=== PATIENT | female | born 2000 | race Caucasian/White ===

== ENCOUNTER 2021-02-23 22:32 | Emergency (ER) | payer BC ==
[~2021-02-23] VITALS: Ht 167.6 cm; Wt 63.0 kg
--- NOTE | 2021-02-23 22:48 | PHYS DOC ---
General Adult EDM: Chief Complaint: SORE THROAT HPI: HPI: ".. I got a really sore throat... It hurts to swallow..." Patient is a 20 year old female who presents with hx of recurrent episodes of pharyngitis. Patient currently has complaints of pharyngitis. Patient was seen by today and given a reported steroid shot and started on clindamycin. Patient does have pending follow-up with ENT. No recent travel. No specific ill contacts. No history immunosuppression. Review of Systems: Review of Systems: Constitutional: Complains of fever Eyes: Denies change in visual acuity HENT: Denies nasal congestion. Complains of sore throat Respiratory: Denies cough or shortness of breath Cardiovascular: Denies chest pain or edema GI: Denies abdominal pain, nausea, vomiting, bloody stools or diarrhea : Denies dysuria Musculoskeletal: Denies back pain or joint pain Integument: Denies rash Neurologic: Denies headache, focal weakness or sensory changes Endocrine: Denies polyuria or polydipsia Lymphatic: Denies swollen glands Psychiatric: Denies depression or anxiety Family History: Family History: Noncontributory to presentation Current Medications: Current Meds: See nursing for home meds Allergies: Allergies: Allergic to penicillins Physical Exam: PE: Constitutional: Well developed, well nourished, moderate acute distress, non- toxic appearance. [] HENT: Normocephalic, atraumatic, bilateral external ears normal, oropharynx moist, no oral exudates, nose normal. Injected tonsillar pillars , some ulcers noted. Eyes: PERRLA, EOMI, conjunctiva normal, no discharge. [] Neck: Normal range of motion, no tenderness, supple, no stridor. Adenopathy anterior cervical chain. Trachea midline Cardiovascular: Tachycardia heart rate regular rhythm, no murmur [] Lungs & Thorax: Bilateral breath sounds equal at apex auscultation [] Abdomen: Bowel sounds normal, soft, no tenderness, no masses, no pulsatile masses. [] Skin: Warm, dry, no erythema, no rash. [] Back: No tenderness, no CVA tenderness. [] Extremities: No tenderness, no cyanosis, no clubbing, ROM intact, no edema. [] Neurologic: Alert and oriented X 3, normal motor function, normal sensory function, no focal deficits noted. [] Psychologic: Affect anxious, judgement normal, mood normal. [] EKG: EKG: [] Radiology/Procedures: Radiology/Procedures: [][address] [address] IMAGING REPORT Signed PATIENT: AVERY BELLA ACCOUNT: [id number] : 2000 LOCATION: ER AGE: 20 SEX: F EXAM STATUS: REG ER ORD. PHYSICIAN: LESLYE AGUDELO MD REASON: OMNI 300,75ML IV.Pain,difficulty swallowing,eval abscess.Hx strep PROCEDURE: CT SOFT TISSUE NECK W/CONTRAST INDICATION: Reason: OMNI 300,75ML IV.Pain,difficulty swallowing,eval abscess.Hx strep / Spl. Instructions: / History: . COMPARISON: None. TECHNIQUE: Axial CT images obtained through the neck with contrast. One or more of the following individualized dose reduction techniques were utilized for this examination: 1. Automated exposure control; 2. Adjustment of the mA and/or kV according to patient size; 3. Use of iterative reconstruction technique. FINDINGS: The epiglottis is not enlarged. No prevertebral soft tissue swelling. Airway appears patent. Nasal septal deviation to the right. Scattered prominent lymph nodes in the neck which could be reactive. For example conglomerate of lymph nodes on the right posterior to the internal jugular vein measuring up to 15 x 25 mm. Enlargement of the pharyngeal tonsils bilaterally with a subtle low density region within the right tonsil measuring approximately 12 mm with subtle rim enhancement. Similar appearance on the left with a low density area measuring approximately 12 mm. Enlargement of the palatine tonsils are seen as well with some low density within that location including the right measuring up to about 12 mm. IMPRESSION: * Enlargement of the pharyngeal and palatine tonsils are identified which could be seen with tonsillitis. There is subtle region of low density within the bilateral pharyngeal tonsils which could be secondary to phlegmon/early abscess formation. There is a similar appearance also seen at the right palatine tonsil. * Lymphadenopathy is identified which could be reactive in nature given the patient's other findings but follow-up could be obtained to ensure that this appropriately resolves to exclude less common neoplastic causes. Electronically signed by: Yesi Ren MD (02/24/2021 2:14 AM) [id number] DICTATED AND SIGNED BY: YESI REN MD DATE: 02/24/21203 CC: LESLYE AGUDELO MD; ANJANA QUIGLEY ~MTH0 0 Heart Score: C/O Chest Pain: N/A Risk Factors: Risk Factors: DM, Current or recent (<one month) smoker, HTN, HLP, family history of CAD, obesity. Risk Scores: Score 0 - 3: 2.5% MACE over next 6 weeks - Discharge Home Score 4 - 6: 20.3% MACE over next 6 weeks - Admit for Clinical Observation Score 7 - 10: 72.7% MACE over next 6 weeks - Early Invasive Strategies Course & Med Decision Making: Course & Med Decision Making Pertinent Labs and Imaging studies reviewed. (See chart for details) Take meds. As previously recommended. Use liquid Benadryl and ibuprofen for some topical relief of pain. Must push fluids. Keep follow-up with ENT. Take this with you on follow-up. Take Disc of CT with you on follow up with ENT. Call for an earlier apt. If no improvement in next 3 days consider possible admission for IV antibiotics. [] Impression: 1. Strep pharyngitis. 2. Possibly early bi lateral tonsillar abscesses Dragon Disclaimer: Dragon Disclaimer: This electronic medical record was generated, in whole or in part, using a voice recognition dictation system. Departure Departure: Referrals: ANJANA QUIGLEY (PCP) Dragon Disclaimer This chart was dictated in whole or in part using Voice Recognition software in a busy, high-work load, and often noisy Emergency Department environment. It may contain unintended and wholly unrecognized errors or omissions. Dragon Disclaimer This chart was dictated in whole or in part using Voice Recognition software in a busy, high-work load, and often noisy Emergency Department environment. It may contain unintended and wholly unrecognized errors or omissions. Dragon Disclaimer This chart was dictated in whole or in part using Voice Recognition software in a busy, high-work load, and often noisy Emergency Department environment. It may contain unintended and wholly unrecognized errors or omissions. LESLYE AGUDELO MD Feb 23, 2021 22:48
[2021-02-23] MEDS ORDERED: oxyCODONE/APAP 5/325 1 TAB TABLET PO ONE (23:45)
[2021-02-23] MEDS ORDERED: CLINDAMYCIN 900MG PREMIX 50 ML IV ONE (23:45)
[2021-02-23] MEDS ORDERED: IV RINGERS SOLUTION,LACTATED 1,000 ML IV ONE (23:45)
[2021-02-24] MEDS ORDERED: KETOROLAC 30 MG/ML VIAL. IVP ONE (00:45)
[2021-02-24] MEDS ORDERED: CONTRAST GIVEN. MC PRN (01:15)
[2021-02-24] MEDS ORDERED: IOHEXOL 300 MG/ML 75 ML VIAL. IV ONE (01:30)
--- NOTE | 2021-02-24 02:17 | RAD ---
INDICATION: Reason: OMNI 300,75ML IV.Pain,difficulty swallowing,eval abscess.Hx strep / Spl. Instruct ions: / History: . COMPARISON: None. TECHNIQUE: Axial CT images obtained through the neck with contrast. One or more of the following individualized dose reduction techniques were utilized for this examinat ion: 1. Automated exposure control; 2. Adjustment of the mA and/or kV according to patient size; 3 . Use of iterative reconstruction technique. FINDINGS: The epiglottis is not enlarged. No prevertebral soft tissue swelling. Airway appears patent. Nasal septal deviation to the right. Scattered prominent lymph nodes in the neck which could be reactive. For example conglomerate of lymp h nodes on the right posterior to the internal jugular vein measuring up to 15 x 25 mm. Enlargement of the pharyngeal tonsils bilaterally with a subtle low density region within the right t onsil measuring approximately 12 mm with subtle rim enhancement. Similar appearance on the left with a low density area measuring approximately 12 mm. Enlargement of the palatine tonsils are seen as wel l with some low density within that location including the right measuring up to about 12 mm. IMPRESSION: * Enlargement of the pharyngeal and palatine tonsils are identified which could be seen with tonsill itis. There is subtle region of low density within the bilateral pharyngeal tonsils which could be se condary to phlegmon/early abscess formation. There is a similar appearance also seen at the right pal atine tonsil. * Lymphadenopathy is identified which could be reactive in nature given the patient's other findings but follow-up could be obtained to ensure that this appropriately resolves to exclude less common ne oplastic causes. Electronically signed by: Jaun Smith MD (02/24/2021 2:14 AM) [id number]
[2021-02-24 02:35] VITALS: BP 133/79
== END 2021-02-24 02:51 | disposition home or self-care (01) ==
LOC: ER 22:32
DX: J02.0 Streptococcal pharyngitis (principal); Z88.0 Allergy status to penicillin
CPT/HCPCS: 70491; 87880; 96365; 96375; 99285; J1885; J3490; J7120; Q9967